=== PATIENT | female | born 1975 | race Caucasian/White ===

== ENCOUNTER 2017-09-01 12:08 | Emergency (ER) | payer SELFPAY ==
--- NOTE | 2017-09-01 12:48 | EDPHY ---
H & P Time Seen by Provider: 09/01/17 12:13 HPI/ROS: CHIEF COMPLAINT: Alcohol intoxication HISTORY OF PRESENT ILLNESS: 41-year-old female presents with alcohol intoxication. She was standing in line at the [employer] to receive lunch, clearly intoxicated. She fell to the ground. EMS was called. She has been drinking all morning. She denies injuries. She is able to walk with a steady gait REVIEW OF SYSTEMS: Constitutional: No weakness Eyes: No visual changes or eye pain ENT: No dental trauma Neck:No pain or injury Respiratory: No shortness of breath Cardiac: No chest pain Gastrointestinal: No abdominal pain, no vomiting Back:No pain or injury Genitourinary: No hematuria Musculoskeletal: No joint pain Skin: No lacerations Neurological: No headache Past Medical/Surgical History: Alcoholism Social History: Homeless Physical Exam: General Appearance: Alert, slurred speech, cooperative Eyes: Pupils dilated, no nystagmus ENT, Mouth: Mucous membranes moist, no trauma Respiratory: Lungs are clear to auscultation Cardiovascular: Regular rate and rhythm Gastrointestinal: Abdomen is soft and nontender, bowel sounds normal Neurological: A&O, normal motor function, normal sensory exam, normal cranial nerves, steady gait Skin: Warm and dry, no wound Musculoskeletal: Neck is atraumatic, nontender Extremities: Nontender, no pedal edema Psychiatric: Mood and affect normal Allergies/Adverse Reactions: pineapple Allergy (Verified 06/15/11 21:56) Home Medications: Medication Instructions Recorded Amox Tr/Potassium Clavulanate 1 each PO BID #20 tablet 06/18/11 [Augmentin 875mg] Hydrocodone Bit/Acetaminophen 1 tab PO Q4-6PRN PRN #20 tab 06/18/11 [Vicodin 5/500] Levothyroxine [Synthroid] 0 mcg PO DAILY 06/18/11 Medical Decision Making ED Course/Re-evaluation: This patient presents with alcohol intoxication. She is on an [facility] hold. No evidence of injury. She is cleared to go to the [facility]. Departure - Departure Disposition: Home, Routine, Self-Care Clinical Impression: Alcohol intoxication Qualifiers: Complication of substance-induced condition: uncomplicated Qualified Code(s): F10.920 - Alcohol use, unspecified with intoxication, uncomplicated Instructions: Alcohol Intoxication (ED) Referrals: Patient,NotPresent [Primary Care Provider] - As per Instructions
--- NOTE | 2017-09-01 12:48 | EDPHY ---
H & P Time Seen by Provider: 09/01/17 12:13 HPI/ROS: CHIEF COMPLAINT: Alcohol intoxication HISTORY OF PRESENT ILLNESS: 41-year-old female presents with alcohol intoxication. She was standing in line at the [employer] to receive lunch, clearly intoxicated. She fell to the ground. EMS was called. She has been drinking all morning. She denies injuries. She is able to walk with a steady gait REVIEW OF SYSTEMS: Constitutional: No weakness Eyes: No visual changes or eye pain ENT: No dental trauma Neck:No pain or injury Respiratory: No shortness of breath Cardiac: No chest pain Gastrointestinal: No abdominal pain, no vomiting Back:No pain or injury Genitourinary: No hematuria Musculoskeletal: No joint pain Skin: No lacerations Neurological: No headache Past Medical/Surgical History: Alcoholism Social History: Homeless Physical Exam: General Appearance: Alert, slurred speech, cooperative Eyes: Pupils dilated, no nystagmus ENT, Mouth: Mucous membranes moist, no trauma Respiratory: Lungs are clear to auscultation Cardiovascular: Regular rate and rhythm Gastrointestinal: Abdomen is soft and nontender, bowel sounds normal Neurological: A&O, normal motor function, normal sensory exam, normal cranial nerves, steady gait Skin: Warm and dry, no wound Musculoskeletal: Neck is atraumatic, nontender Extremities: Nontender, no pedal edema Psychiatric: Mood and affect normal Allergies/Adverse Reactions: pineapple Allergy (Verified 06/15/11 21:56) Home Medications: Medication Instructions Recorded Amox Tr/Potassium Clavulanate 1 each PO BID #20 tablet 06/18/11 [Augmentin 875mg] Hydrocodone Bit/Acetaminophen 1 tab PO Q4-6PRN PRN #20 tab 06/18/11 [Vicodin 5/500] Levothyroxine [Synthroid] 0 mcg PO DAILY 06/18/11 Medical Decision Making ED Course/Re-evaluation: This patient presents with alcohol intoxication. She is on an [facility] hold. No evidence of injury. She is cleared to go to the [facility]. Departure - Departure Disposition: Home, Routine, Self-Care Clinical Impression: Alcohol intoxication Qualifiers: Complication of substance-induced condition: uncomplicated Qualified Code(s): F10.920 - Alcohol use, unspecified with intoxication, uncomplicated Instructions: Alcohol Intoxication (ED) Referrals: Patient,NotPresent [Primary Care Provider] - As per Instructions
--- NOTE | 2017-09-01 12:48 | EDPHY ---
H & P Time Seen by Provider: 09/01/17 12:13 HPI/ROS: CHIEF COMPLAINT: Alcohol intoxication HISTORY OF PRESENT ILLNESS: 41-year-old female presents with alcohol intoxication. She was standing in line at the [employer] to receive lunch, clearly intoxicated. She fell to the ground. EMS was called. She has been drinking all morning. She denies injuries. She is able to walk with a steady gait REVIEW OF SYSTEMS: Constitutional: No weakness Eyes: No visual changes or eye pain ENT: No dental trauma Neck:No pain or injury Respiratory: No shortness of breath Cardiac: No chest pain Gastrointestinal: No abdominal pain, no vomiting Back:No pain or injury Genitourinary: No hematuria Musculoskeletal: No joint pain Skin: No lacerations Neurological: No headache Past Medical/Surgical History: Alcoholism Social History: Homeless Physical Exam: General Appearance: Alert, slurred speech, cooperative Eyes: Pupils dilated, no nystagmus ENT, Mouth: Mucous membranes moist, no trauma Respiratory: Lungs are clear to auscultation Cardiovascular: Regular rate and rhythm Gastrointestinal: Abdomen is soft and nontender, bowel sounds normal Neurological: A&O, normal motor function, normal sensory exam, normal cranial nerves, steady gait Skin: Warm and dry, no wound Musculoskeletal: Neck is atraumatic, nontender Extremities: Nontender, no pedal edema Psychiatric: Mood and affect normal Allergies/Adverse Reactions: pineapple Allergy (Verified 06/15/11 21:56) Home Medications: Medication Instructions Recorded Amox Tr/Potassium Clavulanate 1 each PO BID #20 tablet 06/18/11 [Augmentin 875mg] Hydrocodone Bit/Acetaminophen 1 tab PO Q4-6PRN PRN #20 tab 06/18/11 [Vicodin 5/500] Levothyroxine [Synthroid] 0 mcg PO DAILY 06/18/11 Medical Decision Making ED Course/Re-evaluation: This patient presents with alcohol intoxication. She is on an [facility] hold. No evidence of injury. She is cleared to go to the [facility]. Departure - Departure Disposition: Home, Routine, Self-Care Clinical Impression: Alcohol intoxication Qualifiers: Complication of substance-induced condition: uncomplicated Qualified Code(s): F10.920 - Alcohol use, unspecified with intoxication, uncomplicated Instructions: Alcohol Intoxication (ED) Referrals: Patient,NotPresent [Primary Care Provider] - As per Instructions
[2017-09-01 12:54] VITALS: BP 147/110; PULSE 95; RESP 20; TEMP 97.9; O2SAT 95
== END 2017-09-01 12:45 | disposition home or self-care (01) ==
LOC: EDUNIT#
DX: F10.920 Alcohol use, unspecified with intoxication, uncomplicated (principal)

== ENCOUNTER 2018-07-04 22:55 | Emergency (ER) | payer MEDICAID ==
[2018-07-05] MEDS ORDERED: IBUPROFEN 200 MG TAB PO ONE (01:15)
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
[2018-07-05] MEDS ORDERED: LORAZEPAM 1 MG PREPACK#4 BTL TAKEHOME ONE (01:49)
[2018-07-05 02:03] VITALS: BP 144/93
== END 2018-07-05 02:04 | disposition home or self-care (01) ==
DX: R10.9 Unspecified abdominal pain (principal); S20.212A Contusion of left front wall of thorax, initial encounter; F10.20 Alcohol dependence, uncomplicated

== ENCOUNTER 2018-10-11 16:38 | Emergency (ER) | payer MEDICAID ==
--- NOTE | 2018-10-11 16:58 | EDPHY ---
HPI/HX/ROS/PE/MDM Narrative: CHIEF COMPLAINT: "I just need some Librium to go to the [facility]" HPI: This patient 42 year old female with complex medical history including Lyme disease and mold exposure. She states her bone pain secondary to these conditions has been so severe lately that she has started drinking again. She has tried various natural supplements including willow bark for pain relief. She states she has been falling frequently, but denies any acute trauma. She denies striking her head or any loss of consciousness. She would like to go the the [facility] for assistance with alcohol recovery so that she will be able to see her son for [place]. She would like a prescription for Librium for alcohol withdrawal symptoms. She states she was ill recently after volunteering at the [facility] in [place], but has been recovering over the past five days. No fever, chest pain, shortness of breath, vomiting, diarrhea, or other associated symptoms. REVIEW OF SYSTEMS: A comprehensive 10 system review of systems is otherwise negative aside from elements mentioned in the history of present illness and medical decision making. PMH: Hypothyroid. Lyme disease. Babesiosis. Alcohol abuse. Orthopedic surgery. Ectopic . SOCIAL HISTORY: Lives in [place]. Occasional tobacco use. Recent alcohol use. PHYSICAL EXAM: General:Patient is alert, in no acute distress. Head: Healing right periorbital ecchymosis. ENT:Eyes are normal to inspection. ENT inspection normal. Neck: Normal inspection. Full range of motion. Respiratory:No respiratory distress. Breath sounds normal bilaterally. Cardiovascular: Regular rate and rhythm. Strong peripheral pulses. Normal cap refill. Abdomen:The abdomen is nontender to palpation. There are no peritoneal signs. There are normal bowel sounds. Back: Normal to inspection. No tenderness to palpation. Skin: Normal color. No rash. Warm and dry. Extremities: Normal appearance. Full range of motion. Neuro: Oriented x3. Normal motor function. Normal sensory function. ED Course: 42 year old female presents requesting assistance with alcohol recovery and a prescription for Librium for the [facility]. Exam largely unremarkable. She was concerned regarding a recent illness, but states she has been getting better over the past five days. She is afebrile here in the emergency department. She has declined a flu swab here today. Plan to administer 50mg PO Librium and 1mg PO Ativan for alcohol withdrawal symptom relief. Patient is feeling well following medication administration. Plan to discharge to the [facility] in good condition with a prescription for Librium. Follow up and return precautions discussed. She is comfortable with this plan. - Data Points Medications Given: Discontinued Medications Chlordiazepoxide (Librium 25 Mg Prepack#6) 1 btl TAKEHOME EDNOW ONE Stop: 10/11/18 17:00 Last Admin: 10/11/18 17:15 Dose: 1 btl Chlordiazepoxide HCl (Librium) 50 mg PO EDNOW ONE Stop: 10/11/18 17:00 Last Admin: 10/11/18 17:15 Dose: 50 mg Lorazepam (Ativan) 1 mg PO EDNOW ONE Stop: 10/11/18 17:00 Last Admin: 10/11/18 17:15 Dose: 1 mg General Time Seen by Provider: 10/11/18 16:51 Initial Vital Signs: Initial Vital Signs Temperature (C) 36.7 C 10/11/18 16:41 Heart Rate 117 H 10/11/18 16:41 Respiratory Rate 20 10/11/18 16:41 Blood Pressure 118/72 10/11/18 16:41 O2 Sat (%) 94 10/11/18 16:41 O2 Delivery Mode Room Air Allergies/Adverse Reactions: gluten Allergy (Verified 10/11/18 16:40) pineapple Allergy (Verified 10/11/18 16:40) Home Medications: Medication Instructions Recorded Seroquel 04/20/18 OLANZapine 07/04/18 traZODone 10/11/18 Departure - Departure Disposition: Home, Routine, Self-Care Clinical Impression: Alcohol withdrawal Condition: Good Instructions: Alcohol Withdrawal (ED) Additional Instructions: Please proceed to the [facility] for assistance in alcohol recovery. Take Librium as directed as needed for withdrawal symptoms. Return to the emergency department immediately for fever, vomiting, confusion, headache, abdominal pain or other worsening of condition. Follow-up with your primary care physician within 2-3 days for reevaluation. Referrals: ALEX LONG [Other] - As per Instructions [facility] Detox 24 Hours [Outside] - As per Instructions Report Scribed for: Juancarlos Freeman Report Scribed by: Latanya Bates Date of Report: 10/11/18 Time of Report: 16:55 Physician Review and Approval Statement: Portions of this note were transcribed by an ED scribe. I personally performed the history, physical exam, and medical decision making; and confirm the accuracy of the information in the transcribed note.
[2018-10-11] MEDS ORDERED: LORazepam 1 MG TAB PO ONE (16:59)
[2018-10-11] MEDS ORDERED: chlordiazePOXIDE 25 MG CAP PO ONE (16:59)
[2018-10-11] MEDS ORDERED: CHLORDIAZEPOXIDE 25MG PREPK#6 BTL TAKEHOME ONE (16:59)
[2018-10-11 17:33] VITALS: BP 140/80
== END 2018-10-11 17:33 | disposition home or self-care (01) ==
DX: F10.230 Alcohol dependence with withdrawal, uncomplicated (principal)

== ENCOUNTER 2018-10-12 13:51 | Emergency (ER) | payer MEDICAID ==
[2018-10-12] MEDS ORDERED: NS 1,000 ML IV ONE (15:23)
[2018-10-12] MEDS ORDERED: LORazepam 2 MG/ML INJ IVP ONE (15:24)
[2018-10-12] MEDS ORDERED: ONDANSETRON 4 MG/2 ML VIAL IVP ONE (15:25)
--- NOTE | 2018-10-12 15:29 | EDPHY ---
H & P Stated Complaint: dizziness, h/a, syncope, R arm pain, chills x 2 months getting worse Time Seen by Provider: 10/12/18 14:50 HPI/ROS: CHIEF COMPLAINT: Multiple complaints HISTORY OF PRESENT ILLNESS: 42-year-old female with alcoholism presents with multiple complaints. 2 month history of nausea, vomiting and diarrhea. Associated with persistent right upper extremity pain, without injury. She has also had multiple dizzy spells and recently fell, striking the right periorbital area on furniture and she has a black eye. She started drinking alcohol excessively again approximately 1 month ago. She was seen in this emergency department yesterday for alcohol intoxication and sent to the [facility]. She left the [facility] this afternoon because she did not have Librium at the [facility]. She does not wish to go back to the [facility]. She has been diagnosed with chronic Lyme disease and other tick related illnesses, which have caused multiple symptoms in the past. REVIEW OF SYSTEMS: complete 10 point ROS reviewed and is negative except for the noted elements in the HPI - Personal History LMP (Females 10-55): Now Tetanus Vaccine Date: < 10 years - Medical/Surgical History Hx Asthma: No Hx Chronic Respiratory Disease: No Hx Diabetes: No Hx Cardiac Disease: No Hx Renal Disease: No Hx Cirrhosis: No Hx Alcoholism: Yes Hx HIV/AIDS: No Hx Splenectomy or Spleen Trauma: No Other PMH: hypothyroid, lyme, ECTOPIC - Social History Smoking Status: Current some day smoker Alcohol Use: Heavy Drug Use: None - Physical Exam Exam: General Appearance: Alert, pleasant Eyes: Pupils equal and round, no conjunctival pallor or injection, right periorbital ecchymosis ENT, Mouth: Mucous membranes moist Neck: Normal inspection Respiratory: Lungs are clear to auscultation Cardiovascular: Regular rate and rhythm Gastrointestinal: Abdomen is soft and nontender Neurological: A&O, nonfocal, normal gait Skin: Warm and dry, no rash Extremities: Nontender, no pedal edema Psychiatric: Mood and affect normal Constitutional: Initial Vital Signs Temperature (C) 36.7 C 10/12/18 14:06 Heart Rate 120 H 10/12/18 14:06 Respiratory Rate 18 10/12/18 14:06 Blood Pressure 134/109 H 10/12/18 14:06 O2 Sat (%) 97 10/12/18 14:06 O2 Delivery Mode Room Air Allergies/Adverse Reactions: gluten Allergy (Verified 10/11/18 16:40) pineapple Allergy (Verified 10/11/18 16:40) Home Medications: Medication Instructions Recorded Seroquel 04/20/18 traZODone 10/11/18 Ondansetron Odt [Zofran Odt 4 mg 4 mg PO Q4 PRN #6 tab 10/12/18 (*)] Medical Decision Making ED Course/Re-evaluation: This patient presents with multiple complaints. She does not feel that she is in alcohol withdrawal, but she clearly meets the criteria for alcohol withdrawal. CIWA is 14. Ativan 2 mg IV given. IV normal saline 1 L and Zofran 4 mg IV given. Will observe. After IVF and Ativan, pt feels much better. No longer tachycardic or tremulous. Refuses to go back to the [facility]. Will d/c home. Encouraged PCP f/u. Differential Diagnosis: includes though not limited to electrolyte abn, hypoglycemia, dysrhythmia, dehydration, infectious causes - Data Points Laboratory Results: Laboratory Results 10/12/18 15:48 10/12/18 15:48 Medications Given: Discontinued Medications Sodium Chloride (Ns) 1,000 mls @ 0 mls/hr IV EDNOW ONE; Wide Open PRN Reason: Protocol Stop: 10/12/18 15:24 Last Admin: 10/12/18 15:42 Dose: 1,000 mls Lorazepam (Ativan Injection) 1 mg IVP EDNOW ONE Stop: 10/12/18 15:25 Last Admin: 10/12/18 15:42 Dose: 1 mg Ondansetron HCl (Zofran) 4 mg IVP EDNOW ONE Stop: 10/12/18 15:26 Last Admin: 10/12/18 15:42 Dose: 4 mg Departure - Departure Disposition: Home, Routine, Self-Care Clinical Impression: Dizziness Alcohol withdrawal Qualifiers: Complication of substance-induced condition: uncomplicated Qualified Code(s): F10.230 - Alcohol dependence with withdrawal, uncomplicated Condition: Good Instructions: Alcohol Withdrawal (ED) Additional Instructions: Return for worsening symptoms or any concerns. Referrals: [facility] [Outside] - As per Instructions Prescriptions: Ondansetron Odt [Zofran Odt 4 mg (*)] 4 mg PO Q4 PRN #6 tab PRN Reason: Nausea
[2018-10-12 15:57] LABS: PLATELET COUNT 179 10^3/uL (150-400)
[2018-10-12 18:20] VITALS: BP 121/87
--- NOTE | 2018-10-12 21:02 | CPEKG ---
Test Reason : OPEN Blood Pressure : / mmHG Vent. Rate : 078 BPM Atrial Rate : 079 BPM P-R Int : 106 ms QRS Dur : 079 ms QT Int : 439 ms P-R-T Axes : 080 064 053 degrees QTc Int : 501 ms Sinus rhythm Short OH interval Borderline prolonged QT interval Confirmed by Lary Oliveros ([id number]) on 10/12/2018 9:02:30 PM Referred By: Confirmed By:Lary Oliveros
== END 2018-10-12 18:24 | disposition home or self-care (01) ==
DX: F10.230 Alcohol dependence with withdrawal, uncomplicated (principal); R11.2 Nausea with vomiting, unspecified; R19.7 Diarrhea, unspecified; M79.601 Pain in right arm; R42 Dizziness and giddiness
CPT/HCPCS: 96374; J2060; J2405

== ENCOUNTER 2019-01-12 20:19 | Emergency (ER) | payer MEDICAID ==
--- NOTE | 2019-01-12 20:30 | EDPHY ---
H & P Time Seen by Provider: 01/12/19 20:29 HPI/ROS: CHIEF COMPLAINT: Can not walk HISTORY OF PRESENT ILLNESS: Police were initially called to a man was trespassing at the [facility]. According to police she was initially sitting on his lap and when they started evaluating him she fell off and was on the ground and unable to stand. Patient admits to alcohol tonight but denies any other complaints. Denies head injury or neck or back pain. Brought in by EMS for alcohol intoxication. REVIEW OF SYSTEMS: Eye: no change in vision ENT: no sore throat Cardiac: no chest pain or syncope Pulmonary: no cough or SOB Abdomen: no vomiting, diarrhea, abdominal pain Musculoskeletal: no back pain Skin: no rash Neuro: no headache Constitutional: no fever : no urinary symptoms A comprehensive 10 point review of systems is otherwise negative aside from elements mentioned in the history of present illness. PAST MEDICAL HISTORY: Alcoholism and Lyme disease Social history: Recent alcohol General Appearance: Alert and conversant, cooperative. Eyes: No scleral icterus. Pupils equal reactive extraocular motion intact. ENT, Mouth: Normal mucous membranes. No tongue laceration or abrasion. Respiratory: Normal respiratory effort, breath sounds equal, lungs are clear to auscultation. Cardiovascular: Regular rate and rhythm. Gastrointestinal: Abdomen is soft and non tender. Neurological: Alert, face symmetric, normal motor and sensory in extremities. Slurred speech. Skin: Warm and dry, no rashes. Musculoskeletal: No spinal or extremity tenderness. Psychiatric: Not agitated. Emergency Department course/MDM: Pre-hospital glucose 76. Plan for serial examinations. Presentation consistent with self admitted alcohol ingestion. 2100: Ambulatory. Wants to leave. Stable for discharge to detox at this time. Smoking Status: Current some day smoker Constitutional: Initial Vital Signs Temperature (C) 36.6 C 01/12/19 20:24 Heart Rate 86 01/12/19 20:24 Respiratory Rate 18 01/12/19 20:24 Blood Pressure 130/87 H 01/12/19 20:24 O2 Sat (%) 97 01/12/19 20:24 O2 Delivery Mode Room Air Allergies/Adverse Reactions: gluten Allergy (Verified 10/11/18 16:40) pineapple Allergy (Verified 10/11/18 16:40) Home Medications: Medication Instructions Recorded Seroquel 04/20/18 traZODone 10/11/18 Ondansetron Odt [Zofran Odt 4 mg 4 mg PO Q4 PRN #6 tab 10/12/18 (*)] Medical Decision Making - Data Points Medications Given: Discontinued Medications Chlordiazepoxide (Librium 25 Mg Prepack#6) 1 btl TAKEHOME EDNOW ONE Stop: 01/12/19 21:06 Last Admin: 01/12/19 21:12 Dose: 1 btl Departure - Departure Disposition: Home, Routine, Self-Care Clinical Impression: Alcoholic intoxication Qualifiers: Complication of substance-induced condition: uncomplicated Qualified Code(s): F10.920 - Alcohol use, unspecified with intoxication, uncomplicated Condition: Good Instructions: Chlordiazepoxide (By mouth), Alcohol Intoxication (ED) Referrals: [facility],. [Clinic] - As per Instructions Divina Jensen MD [Medical Doctor] - As per Instructions
[2019-01-12] MEDS ORDERED: CHLORDIAZEPOXIDE 25MG PREPK#6 BTL TAKEHOME ONE (21:05)
[2019-01-12 22:49] VITALS: BP 131/82
== END 2019-01-12 22:30 | disposition home or self-care (01) ==
LOC: EDUNIT#
DX: F10.129 Alcohol abuse with intoxication, unspecified (principal)

== ENCOUNTER 2019-01-16 13:44 | Emergency (ER) | payer MEDICAID ==
--- NOTE | 2019-01-16 13:59 | EDPHY ---
H & P Stated Complaint: Found "passed out in car". Admits to ETOH and crystal Meth - Personal History Current Tetanus/Diphtheria Vaccine: Unsure Current Tetanus Diphtheria and Acellular Pertussis (TDAP): Unsure Tetanus Vaccine Date: < 10 years - Medical/Surgical History Hx Asthma: No Hx Chronic Respiratory Disease: No Hx Diabetes: No Hx Cardiac Disease: No Hx Renal Disease: No Hx Cirrhosis: No Hx Alcoholism: Yes Hx HIV/AIDS: No Hx Splenectomy or Spleen Trauma: No Other PMH: hypothyroid, lyme, ECTOPIC - Social History Smoking Status: Current some day smoker Time Seen by Provider: 01/16/19 13:58 HPI/ROS: CHIEF COMPLAINT: Suspected alcohol abuse HISTORY OF PRESENT ILLNESS: 43 year old female arrives via ambulance for suspected alcohol abuse after she was found sleeping in her car, smells of alcohol self admits to alcohol use.. Patient unable to ambulate without assistance. No reports of trauma or assault. No fall from height. No structures of height near patient. Denies suicidal or homicidal ideation. REVIEW OF SYSTEMS: 10 systems reviewed and negative with the exception of the elements mentioned in the history of present illness PAST MEDICAL/SURGICAL HISTORY: no anticoagulant use, no relevant medical/ surgical history SOCIAL HISTORY: Positive for self disclosed alcohol use PHYSICAL EXAM 1) GENERAL: Well-developed, well-nourished, alert and oriented. Agitated Answering questions appropriately.Smells of alcohol. 2) HEAD: Normocephalic, atraumatic 3) HEENT: Pupils equal, round, reactive to light bilaterally. Negative Horners. Nasopharynx, oropharynx, clear. No deformity or angulation of nose. No septal hematoma. No rhinorrhea. No oral trauma. Ears bilaterally with normal tympanic membranes. No hemotympanum. No fluid or blood in the external auditory canal. No raccoon eyes. No Hardin sign. Teeth are normally aligned with no gross malocclusion, TMJ bilaterally nontender, facial bones nontender including the zygomatic arch, maxilla mandible. 4) NECK: No cervical collar is on. Posterior cervical spine is nontender, no stepoff, no effusion. Full range of motion which does not elicit any midline cervical spine pain, no posterior midline tenderness, no step-off. 5) LUNGS: Clear to auscultation bilaterally, no wheezes, no rhonchi, no retractions. No obvious signs of trauma. No chest wall pain. No flaring, no grunting. Moving symmetrically. No crepitus. 6) HEART: [Regular rate and rhythm, 7) ABDOMEN: No guarding, no rebound, no focal tenderness, no peritoneal signs, no signs of trauma, no ecchymosis 8) MUSCULOSKELETAL: Moving all extremities, no focal areas of tenderness, no obvious trauma. 9) BACK: No midline vertebral tenderness, no fluctuance, no step-off, no obvious trauma, no visual or palpable abnormality. 10) SKIN: No laceration. No abrasion DIFFERENTIAL DIAGNOSIS: In no particular orderincluding but not limited to hypoglycemia, infectious process, electrolyte abnormality, head injury and intoxicants. (Raissa Nunez) Constitutional: Initial Vital Signs Temperature (C) 36.5 C 01/16/19 13:55 Heart Rate 120 H 01/16/19 13:55 Respiratory Rate 16 01/16/19 13:55 Blood Pressure 118/74 01/16/19 13:55 O2 Sat (%) 96 01/16/19 13:55 O2 Delivery Mode Room Air Allergies/Adverse Reactions: gluten Allergy (Verified 10/11/18 16:40) pineapple Allergy (Verified 10/11/18 16:40) Home Medications: Medication Instructions Recorded Seroquel 04/20/18 traZODone 10/11/18 Ondansetron Odt [Zofran Odt 4 mg 4 mg PO Q4 PRN #6 tab 10/12/18 (*)] Medical Decision Making ED Course/Re-evaluation: 1:50 p.m.: Patient observed ambulating stable steady gait. She is not on an [facility] hold. She is placed on a medical incapacity hold before going to the [facility] (Raissa Nunez) Other Provider: The patient was evaluated and managed by the Physician Digital Marketing Apprentice. My co- signature indicates that I have reviewed this chart and I agree with the findings and plan of care as documented. I am the secondary supervising physician. (Jackelyn Francis) - Data Points Medications Given: Discontinued Medications Chlordiazepoxide (Librium 25 Mg Prepack#6) 1 btl TAKEHOME EDNOW ONE Stop: 01/16/19 16:09 Last Admin: 01/16/19 16:39 Dose: 1 btl Departure - Departure Disposition: Home, Routine, Self-Care Clinical Impression: Alcohol abuse Condition: Good Instructions: Chlordiazepoxide (By mouth), Abuse of Alcohol (ED) Referrals: [facility] [Outside] - As per Instructions
[2019-01-16] MEDS ORDERED: CHLORDIAZEPOXIDE 25MG PREPK#6 BTL TAKEHOME ONE (16:08)
[2019-01-16 16:45] VITALS: BP 103/84
== END 2019-01-16 16:58 | disposition home or self-care (01) ==
LOC: EDUNIT#
DX: F10.920 Alcohol use, unspecified with intoxication, uncomplicated (principal); E03.9 Hypothyroidism, unspecified

== ENCOUNTER 2019-03-23 08:17 | Emergency (ER) | payer MEDICAID ==
[2019-03-23] MEDS ORDERED: NS 1,000 ML IV ONE (08:23)
[2019-03-23] MEDS ORDERED: LORazepam 2 MG/ML INJ IVP PRN (08:25)
--- NOTE | 2019-03-23 08:30 | EDPHY ---
H & P Time Seen by Provider: 03/23/19 08:23 HPI/ROS: CHIEF COMPLAINT: Seizure, flank pain HISTORY OF PRESENT ILLNESS: Patient is a 43-year-old female who presents emergency department multiple complaints. The patient states that she regularly drinks "pt of alcohol and "daily. Last drink was 2:00 p.m. Yesterday. Patient has been feeling general malaise. She feels weak and fatigued. She states she has weakness with ambulation. Patient reports feeling shaky. Patient also describes bilateral flank discomfort. Her pain is moderate. She states "I think something is wrong with my kidneys."She has had no dysuria frequency. No hematuria. No fevers or chills. No recent trauma or fall. EMS found the patient awake and alert. Once they placed her in the ambulance the patient did have seizure-like activity. She was given benzodiazepine in route. REVIEW OF SYSTEMS: 10 systems were reveiwed and are negative with the exception of the elements mentioned in the history of present illness. Past Medical/Surgical History: Includes alcohol abuse, Lyme disease, bebesiosis Social history: The patient smokes THC. She denies cigarette use. The patient drinks alcohol regularly. Smoking Status: Current some day smoker Physical Exam: Vitals noted GENERAL: No acute distress, alert. HEENT: Eyes normal to inspection, normal pharynx, no signs of dehydration. NECK: Normal, supple. RESPIRATORY: Clear to auscultation bilaterally, no rales, rhonchi or wheezing. CVS: Regular rate and rhythm, no rubs, murmurs, or gallops. ABDOMEN: Soft, nontender, nondistended, no organomegaly. Benign BACK: Normal to inspection, no CVA tenderness. Normal. SKIN: Normal color, no rash, warm, dry. No pallor. EXTREMITIES: No pedal edema, no calf tenderness, no Homans sign or cords, no joint swelling. NEURO/PSYCH: Alert and oriented, normal mood and affect, normal motor sensory exam. No obvious cranial nerve deficit. Constitutional: Initial Vital Signs Temperature (C) 36.5 C 03/23/19 08:23 Heart Rate 99 03/23/19 08:23 Respiratory Rate 16 03/23/19 08:23 Blood Pressure 146/109 H 03/23/19 08:23 O2 Sat (%) 96 03/23/19 08:23 O2 Delivery Mode Room Air Allergies/Adverse Reactions: gluten Allergy (Verified 10/11/18 16:40) pineapple Allergy (Verified 10/11/18 16:40) Medical Decision Making ED Course/Re-evaluation: In the emergency department I met EMS on arrival. I took report from the paramedics. I discussed possible etiologies with the patient. I answered all her questions. [facility] protocol was followed. Because the patient's back pain laboratory studies and urine were ordered. Patient does not want to go to alcohol detox. I discussed this with the patient. Mild leukopenia. In chemistry panel is unremarkable. is negative. UA negative I discussed the results with the patient. I answered all her questions. On recheck she was doing well. Her tremors had decreased. I again offered the patient transfer to alcohol recovery Center. The patient did not want any treatment or evaluation. Patient was given warnings prior to leaving. She will return with worsening symptoms. Differential Diagnosis: My differential includes but is not limited to alcohol withdrawal, alcohol abuse , electrolyte abnormality, sugar abnormality, renal dysfunction, acute renal failure, urinary tract infection, pyelonephritis, - Data Points Laboratory Results: Laboratory Results 03/23/19 08:35 03/23/19 08:35 03/23/19 03/23/19 03/23/19 10:00 08:35 08:35 WBC RBC Hgb Hct MCV MCH MCHC RDW Plt Count MPV Neut % (Auto) Lymph % (Auto) Henderson % (Auto) Eos % (Auto) Baso % (Auto) Nucleat RBC Rel Count Absolute Neuts (auto) Absolute Lymphs (auto) Absolute Monos (auto) Absolute Eos (auto) Absolute Basos (auto) Absolute Nucleated RBC Immature Gran % Immature Gran # Platelet Estimate Sodium 137 mEq/L mEq/L (135-145) Potassium 4.4 mEq/L mEq/L (3.5-5.2) Chloride 104 mEq/L mEq/L (97-110) Carbon Dioxide 20 mEq/l L mEq/l (22-31) Anion Gap 13 mEq/L mEq/L (6-14) BUN 9 mg/dL mg/dL (7-23) Creatinine 0.7 mg/dL mg/dL (0.6-1.0) Estimated GFR > 60 Glucose 76 mg/dL mg/dL (70-100) Calcium 8.4 mg/dL L mg/dL (8.5-10.4) Beta HCG, Qual NEGATIVE Urine Color YELLOW Urine Appearance HAZY Urine pH 6.0 (5.0-7.5) Ur Specific Cortez 1.016 (1.002-1.030) Urine Protein 1+ H (NEGATIVE) Urine Ketones 1+ H (NEGATIVE) Urine Blood NEGATIVE (NEGATIVE) Urine Nitrate NEGATIVE (NEGATIVE) Urine Bilirubin NEGATIVE (NEGATIVE) Urine Urobilinogen NEGATIVE EU EU (0.2-1.0) Ur Leukocyte Esterase NEGATIVE (NEGATIVE) Urine RBC NONE SEEN /hpf /hpf (0-3) Urine WBC 1-3 /hpf /hpf (0-3) Ur Epithelial Cells 1+ /lpf /lpf (NONE-1+) Urine Bacteria TRACE /hpf H /hpf (NONE SEEN) Urine Mucus TRACE /lpf /lpf (NONE-1+) Urine Glucose NEGATIVE (NEGATIVE) 03/23/19 08:35 WBC 3.59 10^3/uL L 10^3/uL (3.80-9.50) RBC 3.90 10^6/uL L 10^6/uL (4.18-5.33) Hgb 13.4 g/dL g/dL (12.6-16.3) Hct 39.0 % % (38.0-47.0) MCV 100.0 fL H fL (81.5-99.8) MCH 34.4 pg H pg (27.9-34.1) MCHC 34.4 g/dL g/dL (32.4-36.7) RDW 13.5 % % (11.5-15.2) Plt Count 87 10^3/uL L 10^3/uL (150-400) MPV 9.9 fL fL (8.7-11.7) Neut % (Auto) 79.7 % H % (39.3-74.2) Lymph % (Auto) 11.1 % L % (15.0-45.0) Henderson % (Auto) 6.7 % % (4.5-13.0) Eos % (Auto) 0.3 % L % (0.6-7.6) Baso % (Auto) 1.9 % H % (0.3-1.7) Nucleat RBC Rel Count 0.0 % % (0.0-0.2) Absolute Neuts (auto) 2.86 10^3/uL 10^3/uL (1.70-6.50) Absolute Lymphs (auto) 0.40 10^3/uL L 10^3/uL (1.00-3.00) Absolute Monos (auto) 0.24 10^3/uL L 10^3/uL (0.30-0.80) Absolute Eos (auto) 0.01 10^3/uL L 10^3/uL (0.03-0.40) Absolute Basos (auto) 0.07 10^3/uL 10^3/uL (0.02-0.10) Absolute Nucleated RBC 0.00 10^3/uL 10^3/uL (0-0.01) Immature Gran % 0.3 % % (0.0-1.1) Immature Gran # 0.01 10^3/uL 10^3/uL (0.00-0.10) Platelet Estimate TNP Sodium Potassium Chloride Carbon Dioxide Anion Gap BUN Creatinine Estimated GFR Glucose Calcium Beta HCG, Qual Urine Color Urine Appearance Urine pH Ur Specific Cortez Urine Protein Urine Ketones Urine Blood Urine Nitrate Urine Bilirubin Urine Urobilinogen Ur Leukocyte Esterase Urine RBC Urine WBC Ur Epithelial Cells Urine Bacteria Urine Mucus Urine Glucose Medications Given: Lorazepam (Ativan Injection) 0 mg IVP Q1H PRN; Protocol PRN Reason: Alcohol Withdrawal w/IV access Stop: 03/23/19 20:26 Last Admin: 03/23/19 10:24 Dose: 2 mg Discontinued Medications Chlordiazepoxide HCl (Librium) 25 mg PO EDNOW ONE Stop: 03/23/19 10:14 Last Admin: 03/23/19 10:24 Dose: 25 mg Sodium Chloride (Ns) 1,000 mls @ 0 mls/hr IV ONCE ONE; Wide Open PRN Reason: Protocol Stop: 03/23/19 08:24 Last Admin: 03/23/19 08:39 Dose: 1,000 mls Departure - Departure Disposition: Home, Routine, Self-Care Clinical Impression: Alcohol withdrawal Qualifiers: Complication of substance-induced condition: uncomplicated Qualified Code(s): F10.230 - Alcohol dependence with withdrawal, uncomplicated Condition: Good Instructions: Abuse of Alcohol (ED), Alcohol Withdrawal (ED) Additional Instructions: Return the emergency department with worsening symptoms or any other concerns. Slowly decrease your alcohol intake. You refused alcohol detox. Referrals: [facility],. [Clinic] - 2-3 days, if not improved
[2019-03-23 09:28] LABS: PLATELET COUNT 87 10^3/uL (150-400)
[2019-03-23] MEDS ORDERED: chlordiazePOXIDE 25 MG CAP PO ONE (10:13)
[2019-03-23 11:47] VITALS: BP 143/108
--- NOTE | 2019-03-23 13:38 | ASMTCMCOM ---
CM Note CM Note Notes: This CM met with patient to evaluate for resources and desire for treatment/detox. Chart reviewed, including recent ER visits. Patient informs this CM that she has been to rehab many times and was an addiction counselor in [place]. Her mother lives in [place] and is supportive although patient admits she has been staying at the longterm or "on the street". Patient states that she is familiar with the [facility], [facility] in [place], and other detox/treatment programs and does not want anymore "rehab". I have encouraged patient to utilize the [facility] crisis center and the wrapper caser at the longterm as she navigates her future. Encouragement provided for patient's description of various periods of sobriety and insight into her current situation. Date Signed: 03/23/2019 01:38 PM Electronically Signed By:Alyse Javed RN
== END 2019-03-23 11:52 | disposition home or self-care (01) ==
LOC: EDUNIT#
DX: R10.0 Acute abdomen (principal); F10.230 Alcohol dependence with withdrawal, uncomplicated; E86.9 Volume depletion, unspecified
CPT/HCPCS: 96374; J2060

== ENCOUNTER 2019-04-10 11:15 | Emergency (ER) | payer MEDICAID | END 2019-04-10 14:49 ==

== ENCOUNTER 2019-04-23 18:12 | Emergency (ER) | payer MEDICAID | END 2019-04-23 20:35 | disposition home or self-care (01) ==